=== PATIENT | female | born 1945 | race Caucasian/White ===

== ENCOUNTER 2019-03-28 14:20 | Emergency (ER) | payer MEDICARE ==
--- NOTE | 2019-03-28 15:06 | RAD ---
Exam: Right hand 3 views: HISTORY: Swelling and pain with bruising, history of rheumatoid arthritis COMPARISON: 06/22/2015 FINDINGS: Severe subluxation-dislocation of the second and third metacarpal phalangeal joints with less marked changes involving the fourth metacarpal phalangeal joint. 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 Findings are consistent with severe defor mity residual from rheumatoid arthritis. IMPRESSION: Severe deformity of the hand and wrist from rheumatoid arthritis. No acute fracture or dislocation.
== END 2019-03-28 15:40 | disposition home or self-care (01) ==
LOC: MADERS 14:20
DX: M06.9 Rheumatoid arthritis, unspecified (principal); R23.3 Spontaneous ecchymoses; E11.9 Type 2 diabetes mellitus without complications; I10 Essential (primary) hypertension; I48.91 Unspecified atrial fibrillation; E03.9 Hypothyroidism, unspecified; Z79.01 Long term (current) use of anticoagulants; Z79.84 Long term (current) use of oral hypoglycemic drugs; Z79.899 Other long term (current) drug therapy

== ENCOUNTER 2019-07-08 12:03 | Emergency (ER) | payer MEDICARE | END 2019-07-08 12:45 | disposition home or self-care (01) | LOC: MADERS 12:03 | DX: L03.116 Cellulitis of left lower limb (principal); E11.9 Type 2 diabetes mellitus without complications; I10 Essential (primary) hypertension; I48.91 Unspecified atrial fibrillation; E03.9 Hypothyroidism, unspecified; Z79.899 Other long term (current) drug therapy; Z79.82 Long term (current) use of aspirin; Z79.84 Long term (current) use of oral hypoglycemic drugs | CPT/HCPCS: 99283 ==

== ENCOUNTER 2021-11-10 14:43 | Outpatient (CLI) | payer MEDICARE | END 2021-11-10 14:44 | disposition home or self-care (01) | LOC: MADLAB 14:43 → MADRAD 14:44 | PROVIDERS: ATTEND Physician Assistant | DX: R51.9 Headache, unspecified (principal); M47.812 Spondylosis without myelopathy or radiculopathy, cervical region | CPT/HCPCS: 72050 ==

== ENCOUNTER 2025-06-20 13:20 | Inpatient (IN) | payer OTHER ==
[2025-06-20 13:38] VITALS: BMI 40.2
[2025-06-20] MEDS ORDERED: Senokot S 8.6-50 MG TAB PO PRN (21:20)
[2025-06-20] MEDS: Melatonin 3 MG TAB PO PRN (21:46)
[2025-06-20] MEDS: Pregabalin 25 MG CAP PO SCH (22:22)
[2025-06-20] MEDS: Methocarbamol 500 MG TAB PO SCH (22:23)
[2025-06-20] MEDS: Apixaban 2.5 MG TAB PO SCH (22:23)
[2025-06-21] MEDS: Acetaminophen 500 MG TAB PO PRN (03:26)
[2025-06-21] MEDS: oxyCODONE 5 MG TAB PO PRN (04:15)
[2025-06-21] MEDS: Pregabalin 25 MG CAP PO SCH (08:21)
[2025-06-21] MEDS: Furosemide 40 MG TAB PO SCH (08:31)
[2025-06-21] MEDS: Multivit, Therapeutic 1 TAB PO SCH (08:31)
[2025-06-21] MEDS: Apixaban 2.5 MG TAB PO SCH (08:33)
[2025-06-21] MEDS: Pantoprazole 40 MG DR.TAB PO SCH (08:34)
[2025-06-21] MEDS: Folic Acid 1 MG TAB PO SCH (08:34)
[2025-06-21] MEDS: Methocarbamol 500 MG TAB PO SCH (08:34)
[2025-06-21] MEDS: metFORMIN 500 MG TAB PO SCH (17:37)
[2025-06-23] MEDS: Calcitriol 0.25 MCG CAP PO SCH (08:50)
[2025-06-24 05:30] LABS: Hematocrit 26.6 % (36.0-47.0); Hemoglobin 8.4 g/dL (12.0-16.0); MDiff Complete? YES; Mean Corpuscular Hemoglobin 29.8 pg (27.0-31.0); Mean Corpuscular Volume 94.6 fl (78.0-98.0); Platelet Count 328 10x3/uL (130-400); Red Blood Cell (RBC) Count 2.82 mill/uL (4.20-5.40); White Blood Cell (WBC) Count 12.8 10x3/uL (4.8-10.8)
[2025-06-24 05:48] LABS: ALT (SGPT) 10 U/L (Less than 34); AST (SGOT) 20 U/L (11-34); Albumin 2.8 g/dL (3.1-4.5); Alkaline Phosphatase 65 U/L (40-110); Anion Gap 16 mmol/L (10-20); BUN (Urea Nitrogen) 31 mg/dL (9.8-20.1); Bilirubin, Total 0.4 mg/dL (0.3-1.2); Calc. Creatinine Clearance 71 mL/min (70-130); Calcium 8.8 mg/dL (7.8-10.44); Carbon Dioxide 27 mmol/L (23-31); Chloride 99 mmol/L (98-107); Globulin 3.3 g/dL (2.4-3.5); Glucose 102 mg/dL (83-110); Magnesium 1.7 mg/dL (1.6-2.6); Potassium 4.8 mmol/L (3.5-5.1); Sodium 137 mmol/L (136-145)
[2025-06-24] MEDS: Magnesium Oxide 400 MG TAB PO SCH (09:02)
[2025-06-24] MEDS: Lantiseptic Ointment 130 GM JAR TOP PRN (09:07)
[2025-06-27 11:18] VITALS: BMI 38.0
[2025-07-02 05:10] LABS: Hematocrit 26.7 % (36.0-47.0); Hemoglobin 8.5 g/dL (12.0-16.0); Platelet Count 540 10x3/uL (130-400)
[2025-07-03] MEDS ORDERED: Furosemide 20 MG TAB PO PRN (11:30)
[2025-07-03] MEDS: Furosemide 20 MG TAB PO SCH (12:35)
[2025-07-03] MEDS: Gabapentin 300 MG CAP PO PRN (20:28)
[2025-07-04] MEDS: Furosemide 20 MG TAB PO SCH (08:45)
[2025-07-07 06:32] VITALS: TEMP 98.3
[2025-07-07] MEDS ORDERED: Furosemide 20 MG TAB PO SCH (09:00)
[2025-07-07 10:59] VITALS: BP 126/62
== END 2025-07-07 12:15 | disposition home or self-care (01) | DRG 945 ==
LOC: MADMS 13:20
PROVIDERS: ADMIT Family Medicine; ATTEND Family Medicine
PROC: F07Z9ZZ Gait Training/Functional Ambulation Treatment (ICD-10-PCS; principal; 2025-06-20)
DX: R53.81 Other malaise (principal); I48.92 Unspecified atrial flutter; I49.5 Sick sinus syndrome; M06.9 Rheumatoid arthritis, unspecified; I10 Essential (primary) hypertension; E03.9 Hypothyroidism, unspecified; G47.33 Obstructive sleep apnea (adult) (pediatric); E66.01 Morbid (severe) obesity due to excess calories; Z96.651 Presence of right artificial knee joint; R26.89 Other abnormalities of gait and mobility; Z96.641 Presence of right artificial hip joint; E78.5 Hyperlipidemia, unspecified; E11.65 Type 2 diabetes mellitus with hyperglycemia; I48.0 Paroxysmal atrial fibrillation; Z98.51 Tubal ligation status; Z46.89 Encounter for fitting and adjustment of other specified devices; Z98.890 Other specified postprocedural states; Z95.0 Presence of cardiac pacemaker; Z68.36 Body mass index [BMI] 36.0-36.9, adult; Z79.899 Other long term (current) drug therapy; Z79.84 Long term (current) use of oral hypoglycemic drugs
CPT/HCPCS: 36415; 36416; 71045; 80053; 83735; 85014; 85018; 85025; 85049; J7512; J8610